=== PATIENT | male | born 1970 | race Caucasian/White ===

== ENCOUNTER 2022-09-10 13:26 | Emergency (ER) | payer OTHER ==
[2022-09-10] MEDS ORDERED: MORPHINE 4 MG/ML SYR ONE (15:15)
[2022-09-10] MEDS ORDERED: ONDANSETRON 4 MG/2 ML VIAL ONE (15:15)
[2022-09-10] MEDS ORDERED: KETOROLAC 30 MG/ML INJ ONE (15:15)
[2022-09-10] MEDS ORDERED: NA CHLORIDE 0.9% 1,000 ML ONE (15:15)
[2022-09-10 15:40] LABS: Absolute Lymphocytes (CBC) 0.7 K/uL (0.7-4.9); Hematocrit 35.1 % (39.6-49.0); Lymphocytes % 7.2 % (15.3-44.8); MCV 90.2 fL (80-100); MPV 8.2 fL (7.6-11.3); RBC Red Blood Cell Count 3.89 M/uL (4.33-5.43)
[2022-09-10 15:56] LABS: Albumin 3.9 g/dL (3.4-5.0); Bilirubin Total 0.8 mg/dL (0.2-1.0); Potassium 4.3 mEq/L (3.5-5.1); Protein, Total 7.2 g/dL (6.4-8.2)
--- NOTE | 2022-09-10 16:02 | ER ---
Nurse's Notes [facility] Name: Jonathon Amador IV Age: 51 yrs Sex: Male : 1970 Arrival Date: 09/10/2022 Time: 13:26 Bed 12 Private MD: Diagnosis: Unspecified symptoms and signs involving the musculoskeletal system-TORN RIGHT HAMSTRING at its insertion of right ischium;Kidney transplant status-RENAL INSUFFICENCY Presentation: 09/10 13:44 Chief complaint: Patient states: Right leg pain since Tuesday. Pt reports running and mb9 felt leg muscle "tear". Coronavirus screen: At this time, the client does not indicate any symptoms associated with coronavirus-19. Ebola Screen: No symptoms or risks identified at this time. Initial Sepsis Screen: Does the patient meet any 2 criteria? No. Patient's initial sepsis screen is negative. Does the patient have a suspected source of infection? No. Patient's initial sepsis screen is negative. Risk Assessment: Do you want to hurt yourself or someone else? Patient reports no desire to harm self or others. Onset of symptoms was September 10, 2022. 13:44 Method Of Arrival: Ambulatory mb9 13:44 Acuity: ANCELMO 4 mb9 15:05 Acuity: ANCELMO 3 iw Triage Assessment: 13:45 General: Appears in no apparent distress. comfortable, Behavior is calm, cooperative, mb9 appropriate for age. Pain: Complains of pain in right leg. EENT: No signs and/or symptoms were reported regarding the EENT system. Neuro: Level of Consciousness is awake, alert, obeys commands, Oriented to person, place, time, situation. Cardiovascular: Capillary refill < 3 seconds Patient's skin is warm and dry. Respiratory: Airway is patent Respiratory effort is even, unlabored. GI: Abdomen is flat, non-distended. : No signs and/or symptoms were reported regarding the genitourinary system. Derm: No signs and/or symptoms reported regarding the dermatologic system. Musculoskeletal: No signs and/or symptoms reported regarding the musculoskeletal system. Historical: - Allergies: 13:45 No Known Allergies; mb9 - PMHx: 13:45 Atrial fibrillation; mb9 - PSHx: 13:45 Kidney transplant 2019; mb9 - Immunization history:: Adult Immunizations up to date, Client reports receiving the 2nd dose of the Covid vaccine. - Social history:: Smoking status: Patient denies any tobacco usage or history of. Patient/guardian denies using alcohol. - Family history:: not pertinent. Screenin:46 [facility] ED Fall Risk Assessment (Adult) History of falling in the last 3 months, mb9 including since admission No falls in past 3 months (0 pts) Confusion or Disorientation No (0 pts) Intoxicated or Sedated No (0 pts) Impaired Gait No (0 pts) Mobility Assist Device Used No (0 pt) Altered Elimination No (0 pt) Score/Fall Risk Level 0 - 2 = Low Risk Oriented to surroundings, Maintained a safe environment, Educated pt \\T\\ family on fall prevention, incl call for assistance when getting out of bed. Abuse screen: Denies threats or abuse. Nutritional screening: No deficits noted. Tuberculosis screening: No symptoms or risk factors identified. Assessment: 14:12 Reassessment: see triage assessment. mb9 15:37 Reassessment: pt taken to MRI via stretcher. mb9 16:09 Reassessment: Discharge pending results from X-RAY and MRI. mb9 16:36 Reassessment: Patient and/or family updated on plan of care and expected duration. Pain mb9 level reassessed. Patient is alert, oriented x 3, equal unlabored respirations, skin warm/dry/pink. Patient states feeling better. Patient states symptoms have improved. 17:52 Reassessment: Patient and/or family updated on plan of care and expected duration. Pain mb9 level reassessed. Patient is alert, oriented x 3, equal unlabored respirations, skin warm/dry/pink. Patient states feeling better. Patient states symptoms have improved. Vital Signs: 13:44 BP 146 / 99; Pulse 73; Resp 18; Temp 98.1(TE); Pulse Ox 100% on R/A; Weight 79.38 kg; mb9 Height 6 ft. 0 in. ; Pain 9/10; 14:54 BP 133 / 84; Pulse 78; Resp 16; Pulse Ox 100% on R/A; mb9 16:36 BP 128 / 79; Pulse 74; Resp 17; Pulse Ox 100% on R/A; mb9 17:51 BP 130 / 81; Pulse 70; Resp 16; Pulse Ox 100% on R/A; mb9 13:44 Body Mass Index 23.73 (79.38 kg, 182.88 cm) mb9 13:44 Pain Scale: Adult mb9 ED Course: 13:29 Patient arrived in ED. mr 13:41 Kan Dougherty MD is Attending Physician. mac 13:45 Triage completed. mb9 13:45 Arm band placed on right wrist. mb9 13:46 Rowena Bruner, RN is Primary Nurse. mb9 13:46 Bed in low position. Call light in reach. Side rails up X 1. Client placed on mb9 continuous cardiac and pulse oximetry monitoring. NIBP monitoring applied. 13:47 No provider procedures requiring assistance completed. mb9 15:20 Missed attempt(s): 22 gauge in right forearm. Bleeding controlled, band aid applied, mb9 catheter tip intact. 15:31 Inserted saline lock: 22 gauge in right forearm, using aseptic technique. iw 15:37 Comprehensive Metabolic Panel Sent. mb9 15:37 CBC with Automated Diff Sent. mb9 16:01 Mango Dong MD is Referral Physician. mac 16:40 Femur Right Wo Cont In Process Unspecified. EDMS 17:52 IV discontinued, intact, bleeding controlled, No redness/swelling at site. Pressure mb9 dressing applied. Administered Medications: 15:20 Not Given (Duplicate Order): Ketorolac IVP 30 mg IVP once mac 15:30 Drug: NS 0.9% IV 1000 ml Route: IV; Rate: 1 bolus; Site: right forearm; mb9 15:30 Drug: Ondansetron IVP 4 mg Route: IVP; Site: right forearm; mb9 15:54 Follow up: Response: No adverse reaction mb9 15:36 Drug: morphine IVP or IV 4 mg Route: IVP; Infused Over: 4 mins; Site: right forearm; mb9 15:54 Follow up: Response: No adverse reaction mb9 Medication: 13:47 VIS not applicable for this client. mb9 Outcome: 16:01 Discharge ordered by . mac 17:52 Discharged to home ambulatory. mb9 17:52 Condition: stable 17:52 Discharge instructions given to patient, Instructed on discharge instructions, follow up and referral plans. Demonstrated understanding of instructions, follow-up care, medications, Prescriptions given X 1. 17:52 Patient left the ED. mb9 Signatures: Dispatcher [employer] EDMO Kan Dougherty MD MD cha Rivera, Mary mr Williams, Irene, RN RN garland Bruner, Rowena Batista RN RN mb9
--- NOTE | 2022-09-10 16:02 | EDPHYS ---
Physician Documentation [facility] Name: Jonathon Amador IV Age: 51 yrs Sex: Male : 1970 Arrival Date: 09/10/2022 Time: 13:26 Bed 12 Private MD: CALEB Physician Kan Dougherty HPI: 09/10 15:07 This 51 yrs old Male presents to ER via Ambulatory with complaints of Leg mac Pain. 15:07 The patient presents with decreased range of motion, an injury, pain, that is acute. mac The complaints affect the right hamstring. Context: The problem was sustained at home, resulted from playing sports. Onset: The symptoms/episode began/occurred 2 day(s) ago. Modifying factors: The symptoms are alleviated by elevating leg, remaining still, the symptoms are aggravated by movement, weight bearing, bending knee. Associated signs and symptoms: The patient has no apparent associated signs or symptoms. Treatment prior to arrival includes: no previous treatment. The patient has not experienced similar symptoms in the past. Historical: - Allergies: 13:45 No Known Allergies; mb9 - PMHx: 13:45 Atrial fibrillation; mb9 - PSHx: 13:45 Kidney transplant 2019; mb9 - Immunization history:: Adult Immunizations up to date, Client reports receiving the 2nd dose of the Covid vaccine. - Social history:: Smoking status: Patient denies any tobacco usage or history of. Patient/guardian denies using alcohol. - Family history:: not pertinent. ROS: 15:07 Constitutional: Negative for fever, chills, and weight loss, Eyes: Negative for injury, mac pain, redness, and discharge, ENT: Negative for injury, pain, and discharge, Neck: Negative for injury, pain, and swelling, Cardiovascular: Negative for chest pain, palpitations, and edema, Respiratory: Negative for shortness of breath, cough, wheezing, and pleuritic chest pain, Abdomen/GI: Negative for abdominal pain, nausea, vomiting, diarrhea, and constipation, Back: Negative for injury and pain, : Negative for injury, bleeding, discharge, and swelling, Skin: Negative for injury, rash, and discoloration, Neuro: Negative for headache, weakness, numbness, tingling, and seizure, Psych: Negative for depression, anxiety, suicide ideation, homicidal ideation, and hallucinations, Allergy/Immunology: Negative for hives, rash, and allergies, Endocrine: Negative for neck swelling, polydipsia, polyuria, polyphagia, and marked weight changes, Hematologic/Lymphatic: Negative for swollen nodes, abnormal bleeding, and unusual bruising. 15:07 MS/extremity: Positive for injury or acute deformity, decreased range of motion, pain, tenderness, of the left hamstring and right hamstring and right leg. Exam: 15:07 Constitutional: This is a well developed, well nourished patient who is awake, alert, mac and in no acute distress. Head/Face: Normocephalic, atraumatic. Eyes: Pupils equal round and reactive to light, extra-ocular motions intact. Lids and lashes normal. Conjunctiva and sclera are non-icteric and not injected. Cornea within normal limits. Periorbital areas with no swelling, redness, or edema. ENT: Nares patent. No nasal discharge, no septal abnormalities noted. Tympanic membranes are normal and external auditory canals are clear. Oropharynx with no redness, swelling, or masses, exudates, or evidence of obstruction, uvula midline. Mucous membranes moist. Neck: Trachea midline, no thyromegaly or masses palpated, and no cervical lymphadenopathy. Supple, full range of motion without nuchal rigidity, or vertebral point tenderness. No Meningismus. Chest/axilla: Normal chest wall appearance and motion. Nontender with no deformity. No lesions are appreciated. Cardiovascular: Regular rate and rhythm with a normal S1 and S2. No gallops, murmurs, or rubs. Normal PMI, no JVD. No pulse deficits. Respiratory: Lungs have equal breath sounds bilaterally, clear to auscultation and percussion. No rales, rhonchi or wheezes noted. No increased work of breathing, no retractions or nasal flaring. Abdomen/GI: Soft, non-tender, with normal bowel sounds. No distension or tympany. No guarding or rebound. No evidence of tenderness throughout. Back: No spinal tenderness. No costovertebral tenderness. Full range of motion. Male : Normal genitalia with no discharge or lesions. Skin: Warm, dry with normal turgor. Normal color with no rashes, no lesions, and no evidence of cellulitis. Neuro: Awake and alert, GCS 15, oriented to person, place, time, and situation. Cranial nerves II-XII grossly intact. Motor strength 5/5 in all extremities. Sensory grossly intact. Cerebellar exam normal. Normal gait. Psych: Awake, alert, with orientation to person, place and time. Behavior, mood, and affect are within normal limits. 15:07 Musculoskeletal/extremity: ROM: limited active range of motion due to pain, limited passive range of motion due to pain, in the right hamstring, Pulses: are normal with no appreciated deficits, Sensation intact. Compartment Syndrome exam of affected extremity: is normal. DVT Exam: pain, swelling, tenderness, that is mild, of the right leg. Vital Signs: 13:44 BP 146 / 99; Pulse 73; Resp 18; Temp 98.1(TE); Pulse Ox 100% on R/A; Weight 79.38 kg; mb9 Height 6 ft. 0 in. ; Pain 9/10; 14:54 BP 133 / 84; Pulse 78; Resp 16; Pulse Ox 100% on R/A; mb9 16:36 BP 128 / 79; Pulse 74; Resp 17; Pulse Ox 100% on R/A; mb9 17:51 BP 130 / 81; Pulse 70; Resp 16; Pulse Ox 100% on R/A; mb9 13:44 Body Mass Index 23.73 (79.38 kg, 182.88 cm) mb9 13:44 Pain Scale: Adult mb9 MDM: 13:41 Patient medically screened. mac 15:12 Data reviewed: vital signs, nurses notes, lab test result(s), radiologic studies, plain mac films. Management of patient was discussed with the following: Licensed Embalmer Supervisor: ORTHO TO FOLLOW UP , DR DAVIS. I considered the following discharge prescriptions or medication management in the emergency department Medications were administered in the Emergency Department. See MAR. Care significantly affected by the following chronic conditions: A FIB, KIDNEY TRANSPLANT. 09/10 15:35 Order name: Comprehensive Metabolic Panel; Complete Time: 16:16 EDMS 09/10 15:35 Order name: CBC with Automated Diff; Complete Time: 17:17 EDMS 09/10 15:44 Order name: Manual Differential; Complete Time: 17:17 EDMS 09/10 15:16 Order name: Femur Right Wo Cont; Complete Time: 17:17 EDMS Administered Medications: 15:20 Not Given (Duplicate Order): Ketorolac IVP 30 mg IVP once mac 15:30 Drug: NS 0.9% IV 1000 ml Route: IV; Rate: 1 bolus; Site: right forearm; mb9 15:30 Drug: Ondansetron IVP 4 mg Route: IVP; Site: right forearm; mb9 15:54 Follow up: Response: No adverse reaction mb9 15:36 Drug: morphine IVP or IV 4 mg Route: IVP; Infused Over: 4 mins; Site: right forearm; mb9 15:54 Follow up: Response: No adverse reaction mb9 Disposition Summary: 09/10/22 16:01 Discharge Ordered Location: Home mac Problem: new mac Symptoms: have improved mac Condition: Stable mac Diagnosis - Kidney transplant status - RENAL INSUFFICENCY(09/10/22 16:16) mac - Unspecified symptoms and signs involving the musculoskeletal system - TORN RIGHT mac HAMSTRING at its insertion of right ischium(09/10/22 17:17) Followup: mac - With: Private Physician - When: 2 - 3 days - Reason: Recheck today's complaints, Continuance of care, Re-evaluation by your physician Followup: mac - With: - When: 2 - 3 days - Reason: Recheck today's complaints, Re-evaluation by your physician Discharge Instructions: - Discharge Summary Sheet mac - Hamstring Strain mac - Muscle Strain mac - Musculoskeletal Pain mac - Muscle Strain, [id number] mac Forms: - Medication Reconciliation Form mac - Thank You Letter mac - Antibiotic Education mac - Prescription Opioid Use mac Prescriptions: - acetaminophen-codeine 300-30 mg Oral tablet - take 2 tablet by ORAL route every 6 hours; 26 tablet; Refills: 0, Product mac Selection Permitted Signatures: Dispatcher [employer] EDKan Hensley MD MD cha Breneman, Rowena Batista RN RN mb9 Corrections: (The following items were deleted from the chart) 16:16 16:01 Kidney transplant status mac mac 16:45 15:39 Pelvis+RAD.RAD.BRZ ordered. EDMS EDMS 16:45 15:39 Femur Right+RAD.RAD.BRZ ordered. EDMS EDMS 17:17 16:01 Unspecified symptoms and signs involving the musculoskeletal system - TORN RIGHT mac HAMSTRING mac
[2022-09-10 16:32] LABS: Blood Morphology Comment NOTED (NOT SEEN); Platelet Estimate ADEQ
--- NOTE | 2022-09-10 17:12 | RAD REPORT ---
EXAM DESCRIPTION: MRI - Femur Right Wo Cont - 09/10/2022 4:38 pm CLINICAL HISTORY: Leg pain COMPARISON: None TECHNIQUE: Axial, sagittal, and coronal magnetic resonance images of the lower pelvis and upper leg performed FINDINGS: Complete tear involves hamstring tendon at its insertion with right ischium. The tendon is retracted several centimeters. Marked muscle edema is present from above the right hip to just above right knee The uppermost images of the pelvis demonstrate what appear to be left pelvic kidney which is partiall y included the field of view. Nonemergent renal ultrasound is recommended IMPRESSION: Complete hamstring tendon tear at its insertion with the right ischium with a marked alan unt of muscle edema
[2022-09-10 18:42] VITALS: TEMP 98.1; O2SAT 100
[2022-09-10 18:59] VITALS: BP 130/81
== END 2022-09-10 17:52 | disposition home or self-care (01) ==
LOC: ER 13:26
DX: S76.811A Strain of other specified muscles, fascia and tendons at thigh level, right thigh, initial encounter (principal); Z94.0 Kidney transplant status; I48.91 Unspecified atrial fibrillation
CPT/HCPCS: 85025; 36415; 80053; 73718; 96375; 96374; 99284; J2405; J7030